=== PATIENT | female | born 1965 | race Caucasian/White ===

== ENCOUNTER 2019-08-27 10:48 | Outpatient (CLI) | payer OTHER ==
--- NOTE | 2019-08-28 07:33 | ULT ---
RIGHT LOWER EXTREMITY VENOUS ULTRASOUND: DATE: 08/27/2019. FINDINGS: Color duplex Doppler ultrasonography of the deep veins of the right lower extremity was performed. T here is a history of recent surgery. Documentary images and work sheets were provided and reviewed. Above the knee, all findings were normal. The deep veins from groin to knee all showed no echogenic clot, good compression of all deep veins, and normal Doppler responses to augmentation maneuvers. Th ere were similarly normal findings in the posterior tibial veins, greater saphenous vein below the kn ee. Normal flow was seen in the veins of the foot. There was one of the anterior tibial veins where a small thrombus was suggested in the proximal to mi d portion of the leg. There was partial flow with noncompression in this segment. IMPRESSION: All primary deep veins were patent with no clot. There is a small thrombus in one of the proximal to mid anterior tibial veins. POS: CHANELLE
== END 2019-08-27 10:49 | disposition home or self-care (01) ==
LOC: BURULT 10:48
PROVIDERS: ATTEND Podiatrist
DX: I82.441 Acute embolism and thrombosis of right tibial vein (principal)